=== PATIENT | female | born 1940 | race Caucasian/White ===

== ENCOUNTER → 2017-03-17 18:27 | Outpatient (CLI) | payer MEDICARE, OTHER | END | disposition home or self-care (01) | LOC: D.MAMMO 10:30 | DX: Z12.31 Encounter for screening mammogram for malignant neoplasm of breast (principal) ==

== ENCOUNTER → 2018-04-07 10:45 | Outpatient (CLI) | payer MEDICARE, OTHER | END | disposition home or self-care (01) | LOC: D.MAMMO 10:45 | DX: Z12.31 Encounter for screening mammogram for malignant neoplasm of breast (principal) ==

== ENCOUNTER 2018-05-19 17:58 | Outpatient (CLI) | payer MEDICARE, OTHER | END 2018-05-19 17:59 | disposition home or self-care (01) | LOC: D.MAMMO 17:58 | DX: R92.8 Other abnormal and inconclusive findings on diagnostic imaging of breast (principal) ==

== ENCOUNTER 2018-07-25 22:43 | Emergency (ER) | payer MEDICARE, OTHER ==
[~2018-07-25] VITALS: Ht 167.6 cm; Wt 63.6 kg
[2018-07-25 22:49] VITALS: Ht 167.6 cm; Wt 63.6 kg
[2018-07-25 23:05] LABS: BASOPHILS 0.4 % (0-2); EOSINOPHILS 3.1 % (0-7); HEMATOCRIT 38.1 % (36.0-48.0); HEMOGLOBIN 12.7 g/dL (12-16); IMMATURE GRANULOCYTES 0.2 % (0-5); LYMPHOCYTES 42.6 % (15-50); MCH 32.3 pg (26.0-34.0); MCHC 33.3 g/dL (31.0-37.0); MCV 96.9 fL (80.0-100.0); MEAN PLATELET VOLUME 9.9 fL (7.4-10.4); MONOCYTES 10.1 % (2-11); NEUTROPHILS 43.6 % (40-80); PLATELET COUNT 120 10x3/uL (130-400); RBC 3.93 10x6/uL (4.00-5.40); WBC 5.5 10x3/uL (4.8-10.8)
[2018-07-25 23:14] LABS: APTT 30.3 SECONDS (22.8-39.4); INR 1.04 (0.85-1.17); PROTIME 13.1 SECONDS (11.6-15.0)
[2018-07-25 23:18] LABS: ALBUMIN 3.5 g/dL (3.4-5.0); ALKALINE PHOSPHATASE 67 U/L (46-116); ALT (SGPT) 14 U/L (10-68); BILIRUBIN - TOTAL 0.45 mg/dL (0.2-1.3); CALC OSMOLALITY 284 mosm/kg (275-300); CALCIUM 9.1 mg/dL (8.5-10.1); CARBON DIOXIDE 30.2 mmol/L (21.0-32.0); CHLORIDE - SERUM 104 mmol/L (98-107); CREATININE - SERUM 0.9 mg/dL (0.6-1.3); GLUCOSE 96 mg/dL (74-106); POTASSIUM - SERUM 3.2 mmol/L (3.5-5.1); PROTEIN - SERUM 7.3 g/dL (6.4-8.2); SODIUM 142 mmol/L (136-145); UREA NITROGEN 17 mg/dL (7-18); eGFR NON AFRICAN AMERICAN 64 mL/min (90-120)
[2018-07-25 23:30] LABS: CKMB 1.4 U/L (0.0-3.6); CREATINE KINASE 92 UL (21-215); MAGNESIUM - SERUM 2.1 mg/dL (1.8-2.4)
[2018-07-25 23:31] LABS: TROPONIN-I 0.016 ng/mL (0.000-0.060)
[2018-07-26 00:21] VITALS: BP 169/85
== END 2018-07-26 00:21 | disposition home or self-care (01) ==
LOC: D.ER 22:43
PROVIDERS: Family Medicine
DX: R07.9 Chest pain, unspecified (principal); K21.9 Gastro-esophageal reflux disease without esophagitis; I10 Essential (primary) hypertension

== ENCOUNTER 2019-05-18 09:00 | Outpatient (CLI) | payer MEDICARE, OTHER ==
[2018-07-25 22:49] VITALS: BMI 22.6
== END 2019-05-18 10:00 | disposition home or self-care (01) ==
LOC: D.MAMMO 09:00
PROVIDERS: ATTEND Family Medicine
DX: Z12.31 Encounter for screening mammogram for malignant neoplasm of breast (principal)

== ENCOUNTER → 2019-07-13 12:03 | Outpatient (CLI) | payer MEDICARE, OTHER ==
[2018-07-25 22:49] VITALS: BMI 22.6
== END | disposition home or self-care (01) ==
LOC: D.HCCECHO 12:03
PROVIDERS: ATTEND Internal Medicine Cardiovascular Disease
DX: I48.91 Unspecified atrial fibrillation (principal)

== ENCOUNTER 2020-09-01 10:15 | Outpatient (CLI) | payer MEDICARE, OTHER ==
[2018-07-25 22:49] VITALS: BMI 22.6
== END 2020-09-01 10:45 | disposition home or self-care (01) ==
LOC: D.MAMMO 10:15
PROVIDERS: ATTEND Family Medicine
DX: Z12.31 Encounter for screening mammogram for malignant neoplasm of breast (principal)

== ENCOUNTER → 2020-09-09 14:59 | Outpatient (CLI) | payer MEDICARE, OTHER ==
[2018-07-25 22:49] VITALS: BMI 22.6
== END | disposition home or self-care (01) ==
LOC: D.MRI 14:59
PROVIDERS: ATTEND Family Medicine
DX: G45.9 Transient cerebral ischemic attack, unspecified (principal); I10 Essential (primary) hypertension

== ENCOUNTER 2020-09-23 10:40 | Day surgery (SDC) | payer MEDICARE, OTHER ==
[~2020-09-23] VITALS: Ht 167.6 cm; Wt 62.0 kg
--- NOTE | ~2020-09-23 | HEMODYNAMI ---
PATIENT:ESSIE ROCK MEDICAL RECORD: [id number] : 36 LOCATION:DBC ADMISSION DATE: 09/23/20 Generatedon:114:09 Patient name: ESSIE ROCK Patient #: [id number] SSN: : 1940 Date of study: 09/23/2020 Page: Of Hemodynamic Procedure Report Patient Data Patient Demographics Procedure consent was obtained First Name: ESSIE Gender: Female Last Name: SHWETA : 1940 Middle Initial: M Age: 79 year(s) Patient #: [id number] Race: Unknown Additional ID: [id number] Contact details [address]: [address] [place] [address] State: [place] City: [place] Zip code: [address] Past Medical History Allergies Allergen Reaction Date Comments Reported Other allergy 09/23/2020 ELIQUIS, SULFA, CARTIA Admission Admission Data Admission Date: 09/23/2020 Admission Time: 10:40 Weight (lbs.): 136.69 Weight (kg.): 62 Lab Results Lab Result Date: 09/23/2020 Lab Result Time: 0:00 Biochemistry Name Units Result Min Max BUN mg/dl 22 --(----)-* 7 18 Creatinine mg/dl 1.1 --(--*-)-- 0.6 1.3 eGFR ml/min 50 *-(----)-- 90 120 NONAFRICAN CBC Name Units Result Min Max Hematocrit % 41.9 -*(----)-- 42 54 Hemoglobin g/dl 13.6 --(*---)-- 13.5 17.5 Procedure Procedure Types Cath Procedure Diagnostic Procedure PPM/ICD PPM Dual Implant Sedation Charges Moderate Sedation 25-39 minutes Procedure Description Procedure Date Procedure Date: 09/23/2020 Procedure Start Time: 13:38 Procedure End Time: 14:05 Procedure Staff Name Function Alden Zimmer MD Performing Physician Pascual Vo MD Assisting physician Kike Viveros RN Nurse Rose Marie Tomas RT Scrub Cynthia Rodriguez RT Monitor Procedure Data Cath Procedure Fluoroscopy Diagnostic fluoroscopy Total fluoroscopy Time: 1.4 time: 1.4 min min Diagnostic fluoroscopy Total fluoroscopy dose: dose: 7.66 mGy 7.66 mGy Estimated blood loss: 5 ml Procedure Complications No complications Procedure Medications Medication Administration Route Dosage 0.9% NaCl I.V. 100 ml/hr Oxygen etCO2 Nasal cannula 2 l/min Ancef (1Gm/50ml NS) I.V.P.B 1 g Ancef Irrigation Topical 1 g (1gm/500ml NS) Ancef Irrigation 1 g (1gm/500ml NS) Lidocaine 1% added to field 20 Versed I.V. 1 mg Fentanyl I.V. 50 mcg Versed I.V. 1 mg Fentanyl I.V. 50 mcg Versed I.V. 0.5 mg Hemodynamics Rest HGB: 13.6 (g/dl) Heart Rate: 57 (bpm) Snapshots Pre Cath Intra NCS Post Cath Vital Signs Time Heart Resp SPO2 etCO2 NIBP (mmHg) Rhythm Pain Sedation Rate (ipm) (%) (mmHg) Status Level (bpm) 13:20:10 65 11 99 35.2 145/75(98) A-Fib 0 (11) 10(A) , No pain 13:24:24 60 11 100 34.5 146/72(128) A-Fib 0 (11) 10(A) , No pain 13:29:51 56 16 100 37.4 122/60(85) A-Fib 0 (11) 10(A) , No pain 13:33:59 59 10 99 41.2 124/68(79) A-Fib 0 (11) 10(A) , No pain 13:38:09 52 10 100 42 131/65(95) A-Fib 0 (11) 10(A) , No pain 13:42:21 78 17 100 0 126/67(92) A-Fib 0 (11) 9(A) , No pain 13:46:33 54 19 99 0 119/59(97) A-Fib 0 (11) 9(A) , No pain 13:50:39 53 19 97 42.7 122/67(83) A-Fib 0 (11) 9(A) , No pain 13:54:51 47 10 98 47.2 112/58(79) A-Fib 0 (11) 9(A) , No pain 13:58:56 49 11 100 53.2 116/62(85) A-Fib 0 (11) 9(A) , No pain 14:03:02 59 24 100 49.4 117/66(89) A-Fib 0 (11) 9(A) , No pain Medications Time Medication Route Dose Verified Delivered Reason Notes Effectiv eness by by 13:24:30 0.9% NaCl I.V. 100 Kike Kike Per ml/hr Lormaximino Lorigan physician RN RN 13:24:38 Oxygen etCO2 2 Kike Kike for low 02 Nasal l/min Lorigan Lorigan sats cannula RN RN 13:24:50 Ancef I.V.P.B 1 g Kike Kike Per (1Gm/50ml Lorigan Lorigan physician NS) RN RN 13:25:02 Ancef Topical 1 g Kike Kike used for Irrigation Lorigan Lorigan procedure (1gm/500ml RN RN NS) 13:25:21 Ancef Topical 1 g Kike Kike used for Irrigation (added Lorigan Lorigan procedure (1gm/500ml to the RN RN NS) field) 13:25:41 Lidocaine added 20ml Kike Kike for local 1% to vial Lorigan Lorigan anesthetic field x2 RN RN 13:35:37 Versed I.V. 1 mg Kike Kike for Lorigan Lorigan sedation RN RN 13:35:51 Fentanyl I.V. 50 Kike Kike for mcg Lorigan Lorigan sedation RN RN 13:40:07 Versed I.V. 1 mg Kike Kike for Lorigan Lorigan sedation RN RN 13:40:15 Fentanyl I.V. 50 Kike Kike for mcg Lorigan Lorigan sedation RN RN 13:42:49 Versed I.V. 0.5 Kike Kike for mg Lorigan Lorigan sedation RN sales service professional Log Time Note 13:00:49 Kike Viveros RN sent for patient. Start room use. 13:13:00 Time tracking: Regular hours (M-F 7:00 - 5:00) 13:13:03 Procedure Status PPM/ Gen Change/ Lead Revision/ Temp. 13:13:08 Plan of Care:Hemodynamics will remain stable., Cardiac rhythm will remain stable., Comfort level will be maintained., Respiratory function will remain adequate., Patient/ family verbilizes understanding of procedure., Procedure tolerated without complication., Recovers from procedure without complications.. 13:13:12 Patient received from Pre/Post Procedure Room to CCL 3 Alert and oriented. Tansferred to table in Supine position. 13:18:56 Signed procedure consent form obtained from patient. 13:18:57 Warm blankets applied, and philip hugger turned on for patient comfort. 13:18:57 Correct patient and procedure confirmed by team. 13:18:58 Vital chart was started 13:18:59 ECG and BP/O2 sat monitors applied to patient. 13:19:00 Baseline sample Acquired. 13:19:04 Rhythm: atrial fibrillation 13:19:06 Full Disclosure recording started 13:19:16 H&P Date Dictated: 09/17/2020 Within 30 days and on chart., H&P Addendum completed by physician on day of procedure. (MUST COMPLETE FOR ALL OUTPATIENTS). 13:19:17 Pre-procedure instructions explained to patient. 13:19:18 Pre-op teaching completed and patient verbalized understanding. 13:19:19 Family in patients room. 13:19:20 Patient NPO since Midnight. 13:19:38 Patient allergic to Other allergyELIQUIS, SULFA, CARTIA 13:19:41 Is the patient allergic to Iodine/contrast media? No. 13:19:42 Is patient on blood thinner?Yes 13:19:52 LAST DOSE OF XARELTO SAT. A.M. 13:20:25 Patient diabetic? No. 13:20:43 Previous problem with sedation/anesthesia? No ? 13:20:45 Snore? Yes 13:20:46 Sleep apnea? No 13:20:46 Deviated septum? No 13:20:47 Opens mouth fully? Yes 13:20:53 Sticks out tongue? Yes 13:20:55 Airway obstruction? No ? 13:20:57 Dentures? No ? 13:21:00 Patient pain scale 0/10 ?. 13:21:05 IV patent on arrival in right antecubital with 0.9% NaCl at [facility]. 13:21:45 Patient Weight : 136.69 lbs 13:22:25 Lab Result : eGFR NONAFRICAN 50 ml/min 13:22:25 Lab Result : Creatinine 1.1 mg/dl :: Lab Result : BUN 22 mg/dl : Lab Result : Hematocrit 41.9 % :: Lab Result : Hemoglobin 13.6 g/dl :: Lab results completed and on chart. 13::36 Left chest area was prepped with chlora-prep and draped in sterile fashion 13:: Alarms reviewed by R. N. 13:: Sharps counted by scrub and verified by R.N. 13:24:30 0.9% NaCl 100 ml/hr I.V. was administered by Kike Viveros RN; Per physician; Verbal order read back and verified. 13:24:38 Oxygen 2 l/min etCO2 Nasal cannula was administered by Kike Viveros RN; for low 02 sats; Verbal order read back and verified. 13:24:50 Ancef (1Gm/50ml NS) 1 g I.V.P.B was administered by Kike Viveros RN; Per physician; Verbal order read back and verified. 13:25:02 Ancef Irrigation (1gm/500ml NS) 1 g Topical was administered by Kike Viveros RN; used for procedure; Verbal order read back and verified. 13:25:21 Ancef Irrigation (1gm/500ml NS) 1 g Topical (added to the field) was administered by Kike Viveros RN; used for procedure; Verbal order read back and verified. 13:25:41 Lidocaine 1% 20ml vial x2 added to field was administered by Kike Viveros RN; for local anesthetic; Verbal order read back and verified. 13:30:05 Use device set CAROLYN PPM 13:30:06 2-0 Ticron Multipack ([id number]) opened to sterile field. 13:30:09 3-0 Vicryl Single Pack [id number] opened to sterile field. 13:30:10 5-0 Monocryl PS2 [id number] opened to sterile field. 13:30:11 Cautery Tip Direct Service Worker opened to sterile field. 13:30:11 Cautery Pushbutton Pencil opened to sterile field. 13:30:11 Mepilex Dressing (068244) opened to sterile field. 13:30:12 Immobilizer Sling Medium opened to sterile field. 13:30:13 Medtronic 4074-52 PPM Lead opened to sterile field. 13:30:14 Medtronic 4574-45 PPM Lead opened to sterile field. 13:30:[address] Generator [id number] opened to sterile field. 13:30:30 Medtronic bank representative KAYLEE DE PAZ present for procedure. 13:30:38 Pre sharps counted by scrub and verified by RN: Sutures: 7; Sponges: 5; Stick needles: 2; Skin needles: 2; Blade: 1; Cautery: 1 13:30:40 Grounding pad site Left thigh. 13:30:41 Grounding pad site free from injury. 13:34:34 --------ALL STOP TIME OUT------ 13:34:34 Final Timeout: patient, procedure, and site verified with staff and physician. All members of the team are in agreement. 13:34:37 Left chest site verified by team. 13:34:41 Fire Safety Assessment: A--An alcohol-based skin anteseptic being used preoperatively., B--The operative or invasive procedure is being performed above the xiphoid process or in the oropharynx., C--Open oxygen or nitrous oxide is being used. 13:34:43 Physical assessment completed. ASA score P 2 - A patient with mild systemic disease as per Alden Zimmer MD. 13:34:52 Sedation plan: IV Moderate Sedation Medication:Versed, Fentanyl 13:35:37 Versed 1 mg I.V. was administered by Kike Viveros RN; for sedation; Verbal order read back and verified. 13:35:51 Fentanyl 50 mcg I.V. was administered by Kike Viveros RN; for sedation; Verbal order read back and verified. 13:38:16 Procedure started. 13:38:31 Lidocaine 1% was administered to left subclavicular area by Pascual Vo MD . 13:40:07 Versed 1 mg I.V. was administered by Kike Viveros RN; for sedation; Verbal order read back and verified. 13:40:15 Fentanyl 50 mcg I.V. was administered by Kike Viveros RN; for sedation; Verbal order read back and verified. 13:41:03 Incision made to left subclavicular area. 13:42:49 Versed 0.5 mg I.V. was administered by Kike Viveros RN; for sedation; Verbal order read back and verified. 13:44:48 Generator pocket made/opened. 13:44:51 Left subclavian vein accessed with 7Fr Peel Away Sheath. 13:44:54 Left subclavian vein accessed with 7Fr Peel Away Sheath. 13:45:08 Ventricular lead inserted and advanced. 13:45:10 Atrial lead inserted and advanced. 13:47:53 Ventricular lead positioned. 13:49:20 Ventricular lead tested. 13:49:48 Atrial lead positioned. 13:51:06 Atrial lead tested. 13:51:47 Ventricular lead positioned. 13:51:50 Ventricular lead tested. 13:52:32 Peel-a-way sheath was split and removed. 13:52:32 Peel-a-way sheath was split and removed. 13:53:34 PPM Dual was attached to lead(s) and inserted into pocket. 13:53:37 PPM Dual was inserted subcutaneously to left chest. 13:53:40 Device pocket was irrigated with Ancef. 13:53:44 Atrial lead attachment was completed with 2-0 ticron. 13:53:47 Ventricular lead attachment was completed with 2-0 ticron. 13:53:50 Generator was sutured in place with 2-0 ticron. 13:59:52 Subcutaneous closure was completed with 3-0 vicryl. 14:02:22 Skin closure was completed with 5-0 monocryl. 14:02:27 Lt Chest incision was dressed with Mepilex dressing. 14:02:34 Procedure ended.(Physican Out) 14:03:00 Fluoroscopy time 01.40 minutes. 14:03:04 Fluoroscopy dose: 7.66 mGy 14:03:04 Flurop Dose total: 7.66 14:03:08 Dose Area Product 106 mGy/cm. 14:03:13 Sharps counted by scrub and verified by R.N. 14:03:55 Insertion/operative site no bleeding no hematoma. 14:03:58 Post-procedure physical assessment completed. ASA score P 2 - A patient with mild systemic disease as per Alden Zimmer MD. 14:04:03 Post procedure rhythm: paced 14:04:04 Estimated blood loss: 5 ml 14:04:06 Post procedure instruction explained to patient.Patient verbalizes understanding. 14:04:06 Patient needs reinforcement of post procedure teaching. 14:04:41 Procedure type changed to Cath procedure, Diagnostic procedure, PPM/ICD, PPM Dual Implant, Sedation Charges, Moderate Sedation 25-39 minutes 14:04:53 Procedure and supply charges have been captured, reviewed, submitted and are correct. 14:04:57 Procedure Complication : No complications 14:05:00 Vital chart was stopped 14:05:02 Operative report dictated upon procedure completion. 14:05:02 See physician's report for complete and final results. 14:05:05 Report given to Pre/Post Procedure Room. 14:05:07 Patient transfered to Pre/Post Procedure Room with Stretcher. 14:05:15 Procedure ended. 14:05:15 Full Disclosure recording stopped 14:05:32 Post sharps counted by scrub and verified by RN: Sutures: 7; Sponges: 5; Stick needles: 2; Skin needles: 2; Blade: 1; Cautery: 1 14:06:02 Parameters-- Generator: Mode: DDDR. Lower Rate: 60bpm. Upper Rate: 120bpm. 14:06:42 End room use (Document Last) 14:08:57 Procedure ended.(Physican Out) Device Usage Item Name Manufacture Quantity Catalog Hospital Part Current Minima l Lot# / Number Charge Number Stock Stock Serial# Code 2-0 Ticron Ethicon 3 [id number] 02016 [id number] 5 Multipack ([id number]) 3-0 Vicryl Ethicon 1 [id number] 302385 486046 5 Single Pack [id number] 5-0 Monocryl Ethicon 1 Y495G 837939 214421 882286 5 PS2 Y495G Cautery Tip Microtek 1 [id number] 148207 372289 214641 5 Direct [employer] Cautery Microtek 1 [id number] 32594 539607 5 Pushbutton [employer] Pencil Mepilex Cardinal 1 200916 456962 635035 636595 5 [facility] ([id number]) Immobilizer Cardinal 1 26-96031 963551 407648 300987 5 Sling [facility] Medtronic Medtronic 1 4074-52 863339 994541 976736 5 [id number] 4073-52 PPM EXP: Lead 08.10.21 Medtronic Medtronic 1 5834-45 169419 705384 453619 5 [id number] 4574-45 PPM EXP; Lead 01.06.22 Medtronic Medtronic 1 [id number] 172606 2686966 [id number] [id number] EXP: Generator 12.24.21 [id number] Signature Audit [place] Stage Time Signature Unsigned Intra-Procedure 09/23/2020 Cynthia Rodriguez 2:08:24 PM RT(R) Intra-Procedure 09/23/2020 Kike 2:08:57 PM Felice RESENDIZ Intra-Procedure 09/23/2020 Alden Nicholson 2:09:16 PM Bhupinder TABOR [facility] [address] [place] [address]
--- NOTE | ~2020-09-23 | OP ---
PATIENT NAME: ESSIE ROCK MEDICAL RECORD: [id number] :36 LOCATION:D.CAT ADMISSION DATE: SURGEON: MELY LEON MD DATE OF OPERATION: 09/23/2020 PREOPERATIVE DIAGNOSIS: Sick sinus syndrome with pauses. POSTOPERATIVE DIAGNOSIS: Sick sinus syndrome with pauses. PROCEDURE: 1. Left subclavian vein dual lead pacemaker placement. 2. Fluoroscopic interpretation. SURGEON: Mely Leon MD CO-SURGEON: Alden Santiago MD REPORT OF OPERATION: The patient's left chest was prepped and draped in sterile fashion. A 20 mL of 1% lidocaine with epinephrine was infused into the surrounding tissues. A transverse incision was made on the left superior lateral chest and a subcutaneous pouch was made over the pectoral fascia. [place] were used to cannulate the left subclavian vein and guidewires were advanced with ease. Fluoroscopy was used to note that the wires were in good position in the venous system. The dilator trocar devices were placed over the wires and the wires and dilators were removed. The leads were advanced through the trocars until they rested in the superior vena cava. At this point, Dr. Santiago positioned the leads appropriately in the atrium and ventricle. Once these were noted to be in good position and these were sutured into place with 2-0 Ti-Cron, the leads were affixed to the pacemaker. This was then placed into the subcutaneous pouch and sutured to the pectoral fascia with a single interrupted 2-0 Ti-Cron. We irrigated out the wound bed using antibiotic solution. The subcutaneous tissues were reapproximated with interrupted 3-0 Vicryl and the skin was closed with running subcutaneous 5-0 Monocryl. COMPLICATIONS: None. CONDITION: Stable. ANESTHESIA: Local MAC. BLOOD LOSS: Minimal. TRANSINT:[id number] Voice Confirmation ID: [id number] DOCUMENT ID: [id number] MELY LEON MD CC: [id number] DICTATION DATE: 09/23/20 140 REGIONAL TRAINER: 09/23/20 182 [facility] 09/23/[address] [facility] [address] [place] [id number]
--- NOTE | ~2020-09-23 | OP ---
PATIENT NAME: ESSIE TSAI MEDICAL RECORD: [id number] :36 LOCATION:D.CAT ADMISSION DATE: SURGEON: AMBER SIMMONS MD DATE OF OPERATION: 09/23/2020 PROCEDURE: Lead portion of permanent pacemaker placement. INDICATION: Sick sinus syndrome with pauses. SURGEON: Pascual Vo MD DESCRIPTION OF PROCEDURE: After left subclavian was cannulated via modified Seldinger technique via Dr. Vo, first under fluoroscopic guidance, we placed the RV lead in the RV apex without difficulty. After adequate thresholds were obtained, the right atrial lead was placed in the right atrial appendage without difficulty. After adequate fibrillatory waves were obtained at 3, had adequate resistance. Leads were attached to appropriate poles of the generator and the pocket was closed by Dr. Vo. IMPRESSION: Successful lead portion of permanent pacemaker placement on Essie Tsai. ESTIMATED BLOOD LOSS: Minimal. COMPLICATIONS: None. DISPOSITION: To the floor, stable. TRANSINT:[id number] Voice Confirmation ID: [id number] DOCUMENT ID: [id number] AMBER SIMMONS MD CC: [id number] DICTATION DATE: 09/23/20 1406 LOGISTICS SUPPORT: 09/23/20 1832 [facility] 09/23/20 [place] [id number] [place] [id number]
[2020-09-23] MEDS ORDERED: BETAPACE 80 MG80 MG PO (10:58)
[2020-09-23] MEDS ORDERED: BAYER CHEWABLE81 MG PO (11:02)
[2020-09-23] MEDS ORDERED: IPRATROPIUM BRO15 M1 NASAL (11:03)
[2020-09-23] MEDS ORDERED: GLUCOSAMINE HC500 MG PO (11:03)
[2020-09-23] MEDS ORDERED: VITAMIN D-32000 UNIT PO (11:03)
[2020-09-23] MEDS ORDERED: ASCORBIC ACID500 MG PO (11:04)
[2020-09-23] MEDS ORDERED: XARELTO20 MG PO (11:04)
[2020-09-23 11:21] VITALS: BP 147/70; Ht 167.6 cm; Wt 62.0 kg
[2020-09-23 11:35] LABS: HEMATOCRIT 41.9 % (36.0-48.0); HEMOGLOBIN 13.6 g/dL (12-16); MCH 32.6 pg (26.0-34.0); MCHC 32.5 g/dL (31.0-37.0); MCV 100.5 fL (80.0-100.0); MEAN PLATELET VOLUME 11.2 fL (7.4-10.4); RBC 4.17 10x6/uL (4.00-5.40); RDW 13.2 % (11.5-14.5); WBC 6.7 10x3/uL (4.8-10.8)
[2020-09-23 11:40] LABS: ANION GAP 13.1 mmol/L (8-16); APTT 32.9 SECONDS (22.8-39.4); CALCIUM 9.3 mg/dL (8.5-10.1); CARBON DIOXIDE 27.5 mmol/L (21.0-32.0); CREATININE - SERUM 1.1 mg/dL (0.6-1.3); INR 1.25 (0.85-1.17); POTASSIUM - SERUM 3.6 mmol/L (3.5-5.1); PROTIME 14.6 SECONDS (11.6-15.0)
--- NOTE | 2020-09-23 14:26 | NUR ---
PT ARRIVED BY STRETCHER. PLACED ON MONITORS. ASSESSMENT COMLPLETED. CALL LIGHT WITHIN REACH. FAMILY AT BEDSIDE. LEFT ARM IN SLING. LEFT UPPER CHEST DRESSING C/D/I. NO S/S OF BLEEDING/HEMATOMA NOTED.
--- NOTE | 2020-09-23 14:40 | NUR ---
PT RESTING COMFORTABLY. VSS AT THIS TIME. PT V-PACED. HR 60. LEFT UPPER CHEST DRESSING C/D/I. NO S/S OF HEMATOMA NOTED.
--- NOTE | 2020-09-23 15:15 | NUR ---
CXR RESULTS REVIEWED. PIV D/C'D WITH CATH TIP INTACT. LEFT UPPER CHEST DRESSING C/D/I. NO S/S OF HEMATOMA/BLEEDING NOTED. PT INSTRUCTED TO GET UP AND DRESSED AT THIS TIME. FAMILY AT BEDSIDE TO ASSIST.
--- NOTE | 2020-09-23 15:25 | NUR ---
DISCUSSED DISCHARGE INSTRUCTIONS WITH PT AND PT'S FAMILY. THEY VOICED UNDERSTANDING.
--- NOTE | 2020-09-23 15:30 | NUR ---
PT TAKEN OUT TO VEHICLE BY WHEELCHAIR. NO S/S OF DISTRESS NOTED. ALL BELONGINGS AND PAPERWORK IN HAND.
== END 2020-09-23 15:30 | disposition home or self-care (01) ==
LOC: D.CATH 10:40
PROVIDERS: ATTEND Internal Medicine Interventional Cardiology
DX: I49.5 Sick sinus syndrome (principal); I48.91 Unspecified atrial fibrillation; R06.00 Dyspnea, unspecified